=== PATIENT | female | born 1975 | race Caucasian/White ===

== ENCOUNTER → 2022-11-26 08:38 | Outpatient (CLI) | payer OTHER, SELFPAY ==
--- NOTE | ~2022-11-26 | MMUS_ITS ---
EXAMINATION: MM diag franklin implant BI w orlin, US breast BI limited HISTORY: Palpable lump in the upper outer quadrant of the right breast and in the right axilla. TECHNIQUE: Craniocaudal, mediolateral, and mediolateral oblique 3-D tomosynthesis images with implant displacement of the breasts were performed and synthetic 2-D images were generated. Craniocaudal, m ediolateral oblique, and mediolateral views of the breasts without implant displacement were obtained using full field digital mammography. CAD analysis was submitted and interpreted. High resolution li [employer] bilateral breast ultrasound was performed. COMPARISON: 09/15/2021, 08/31/2021, 03/23/2019, 05/20/2017 BREAST PARENCHYMAL COMPOSITION: The breasts are extremely dense, which lowers the sensitivity of mamm ography. FINDINGS: MAMMOGRAPHIC FINDINGS: Right breast: There is an approximately 2.5 x 1.7 cm oval, obscured, low density mass in the inner ri ght breast at the 3:00 location, 5 cm from the nipple corresponding to the palpable abnormality of co ncern. No suspicious calcification or architectural distortion are identified. No mammographic correl ate is identified for the reported palpable abnormality of the right axilla. Left breast: No suspicious mass, calcification, or architectural distortion are identified to suggest malignancy. There has been no suspicious interval change. ULTRASOUND: There is a 2.4 x 1.2 cm cyst of the right breast at the 2:00 location, 2.5 cm from the nipple corresp onding to the palpable abnormality of concern. No discrete sonographic correlate is identified in the right axilla to correlate with the palpable abnormality. Targeted left breast ultrasound from 5:00 t o 7:00 is unremarkable. IMPRESSION: 1. No mammographic or sonographic evidence of malignancy. 2. Recommend routine screening mammography in one year. BI-RADS Category 2: Benign finding(s). Reviewed, dictated and finalized at location A. IMPRESSION: 1. No mammographic or sonographic evidence of malignancy. 2. Recommend routine screening mammography in one year. BI-RADS Category 2: Benign finding(s).
== END ==
PROVIDERS: PCP Nurse Practitioner; Visit Provider Nurse Practitioner
DX: N63.11 Unspecified lump in the right breast, upper outer quadrant (principal)
CPT/HCPCS: 76642; 77062; 77066; G0279

== ENCOUNTER 2023-12-31 14:38 | Outpatient (CLI) | payer OTHER, SELFPAY ==
--- NOTE | ~2023-12-31 | MM_ITS ---
EXAMINATION: MM scrn franklin implant BI w orlin HISTORY: Screening mammogram TECHNIQUE: Craniocaudal and mediolateral oblique 3-D tomosynthesis images with implant displacement a nd synthetic 2-D images were generated. Craniocaudal and mediolateral oblique views of the breasts wi thout implant displacement were obtained using full field digital mammography. CAD analysis was submi tted and interpreted. COMPARISON: Comparison to multiple prior studies sequentially, with oldest reviewed study dated 03/02. BREAST PARENCHYMAL COMPOSITION: Dense: The breasts are extremely dense, which lowers the sensitivity of mammography. FINDINGS: There is no evidence of suspicious mass, calcification, or architectural distortion to sugg est malignancy in either breast. There has been no suspicious interval change. IMPRESSION: 1. No mammographic evidence of malignancy. 2. Recommend routine screening mammography in one year. BI-RADS Category 1: Negative Reviewed, dictated and finalized at location B.
== END 2023-12-31 14:39 | disposition home or self-care (01) ==
PROVIDERS: PCP Obstetrics & Gynecology; Visit Provider Obstetrics & Gynecology
DX: Z12.31 Encounter for screening mammogram for malignant neoplasm of breast (principal)
CPT/HCPCS: 77063; 77067

== ENCOUNTER 2025-01-01 14:41 | Outpatient (CLI) | payer OTHER, SELFPAY ==
--- NOTE | ~2025-01-01 | MM_ITS ---
EXAMINATION: MM scrn franklin implant BI w orlin INDICATION: Asymptomatic, referred for screening mammogram COMPARISON: 12/31/2023 through 08/31/2021 TECHNIQUE: Digital Breast Tomosynthesis CC, MLO, and implant displaced CC and MLO views of Both breasts were obtained with computer-aided detection to assist in interpretation of the study. FINDINGS: The breasts are heterogeneously dense, which may obscure small masses. Bilateral breast Retropectoral Saline implants in place appears intact. No focal dominant mass, architectural distortion, or suspicious microcalcifications are identified. There are no features to suggest malignancy. IMPRESSION: 1. No evidence of malignancy in the breasts. 2. Both breasts Retropectoral Saline implants appears intact. Recommend continued screening mammography BI-RADS 1, NEGATIVE Reviewed, dictated and finalized at location B.
== END 2025-01-01 14:42 | disposition home or self-care (01) ==
LOC: MICIMG 14:42
PROVIDERS: PCP Obstetrics & Gynecology; Visit Provider Obstetrics & Gynecology
DX: Z12.31 Encounter for screening mammogram for malignant neoplasm of breast (principal)
CPT/HCPCS: 77063; 77067